=== PATIENT | male | born 1945 | race Caucasian/White ===

== ENCOUNTER 2018-07-08 08:12 | Emergency (ER) | payer MEDICARE, OTHER ==
[~2018-07-08] VITALS: Ht 167.6 cm; Wt 77.1 kg
[~2018-07-08 08:12] MED LIST: ASP81TEC PO; HYDR1TAB66 PO; PNT40TEC PO; cholesterol med
--- NOTE | 2018-07-08 08:40 | ED Cardiac General ---
History of Present Illness General Chief Complaint: Chest Pain Stated Complaint: CHEST PAIN;LEFT ARM PAIN Source: patient Exam Limitations: no limitations History of Present Illness Date Seen by Provider: Jul 08, 2018 Time Seen by Provider: 08:37 Initial Comments A 72-year-old white male presents with chest pain moderate in severity lasting for 1-2 minutes that began last night. The patient has had no similar chest pain in the past. The patient has been seen by Dr. Hanna. He has a history of hypertension and elevated cholesterol. There is a family history of heart disease in his sister who has required a stent. The patient's chest pain as described as a pressure-type discomfort on a 1-2 level that occurs intermittently lasting approximately 2 minutes. The patient has had no associated diaphoresis, shortness of breath, fever or chill, intercurrent illness, or nausea or vomiting. Allergies and Home Medications Allergies Coded Allergies: No Known Drug Allergies (Verified , 12/18/08) Home Medications Aspirin 81 Mg Tabec, 81 MG PO DAILY Prescribed by: FELIZ HALL on 10/27/131836 Hydrocodone Bit/Acetaminophen 1 Each Tablet, 1 EACH PO PRN, (Reported) NEEDED FOR PAIN Pantoprazole Sodium 40 Mg Tablet., 40 MG PO DAILY@0700 Prescribed by: FELIZ HALL on 10/27/131836 Patient Home Medication List Home Medication List Reviewed: Yes Review of Systems Review of Systems Constitutional: see HPI; No chills, No diaphoresis EENTM: No Blurred Vision Respiratory: Denies Cough Cardiovascular: Chest Pain Gastrointestinal: Denies Abdomen Distended, Denies Nausea, Denies Vomiting Genitourinary: No Symptoms Reported Musculoskeletal: No back pain Skin: No change in color, No rash Psychiatric/Neurological: No Symptoms Reported Endocrine: No Symptoms Reported Hematologic/Lymphatic: No Symptoms Reported Past Euoitvx-Lezfxt-Zdlnts Hx Past Med/Social Hx: Reviewed Nursing Past Med/Soc Hx Seasonal Allergies Seasonal Allergies: No Past Medical History Reproductive Disorders: No Sexually Transmitted Disease: No Prostate Family Medical History Heart Disease Physical Exam Vital Signs Vital Signs - First Documented 07/08/18 08:34 Temp 98.9 Pulse 66 Resp 18 B/P (MAP) 144/86 (105) Pulse Ox 97 O2 Delivery Room Air Capillary Refill : Height, Weight, BMI Height: 5'10.00" Weight: 217lbs. oz. 98.556007rw; BMI Method:Stated General Appearance: No Apparent Distress, WD/WN HEENT: Normal ENT Inspection Neck: Normal Inspection Respiratory: Lungs Clear Cardiovascular: Regular Rate, Rhythm, No Gallop, No Murmur Gastrointestinal: Normal Bowel Sounds, Non Tender, Soft Extremity: Normal Capillary Refill, Normal Inspection Neurologic/Psychiatric: Alert, Oriented x3, No Motor/Sensory Deficits Skin: Normal Color, Warm/Dry Progress/Results/Core Measures Results/Orders Lab Results Laboratory Tests Test 07/08/18 08:25 Range/Units White Blood Count 7.3 4.3-11.0 10^3/uL Red Blood Count 4.46 4.35-5.85 10^6/uL Hemoglobin 15.0 13.3-17.7 G/DL Hematocrit 42 40-54 % Mean Corpuscular Volume 95 80-99 FL Mean Corpuscular Hemoglobin 34 25-34 PG Mean Corpuscular Hemoglobin Concent 36 32-36 G/DL Red Cell Distribution Width 13.3 10.0-14.5 % Platelet Count 195 130-400 10^3/uL Mean Platelet Volume 10.9 H 7.4-10.4 FL Neutrophils (%) (Auto) 71 42-75 % Lymphocytes (%) (Auto) 17 12-44 % Monocytes (%) (Auto) 9 0-12 % Eosinophils (%) (Auto) 2 0-10 % Basophils (%) (Auto) 1 0-10 % Neutrophils # (Auto) 5.2 1.8-7.8 X 10^3 Lymphocytes # (Auto) 1.3 1.0-4.0 X 10^3 Monocytes # (Auto) 0.6 0.0-1.0 X 10^3 Eosinophils # (Auto) 0.2 0.0-0.3 10^3/uL Basophils # (Auto) 0.1 0.0-0.1 10^3/uL Prothrombin Time 12.9 12.2-14.7 SEC INR Comment 1.0 0.8-1.4 Activated Partial Thromboplast Time 26 24-35 SEC Sodium Level 139 135-145 MMOL/L Potassium Level 4.0 3.6-5.0 MMOL/L Chloride Level 109 H 98-107 MMOL/L Carbon Dioxide Level 20 L 21-32 MMOL/L Anion Gap 10 5-14 MMOL/L Blood Urea Nitrogen 17 7-18 MG/DL Creatinine 1.16 0.60-1.30 MG/DL Estimat Glomerular Filtration Rate > 60 BUN/Creatinine Ratio 15 Glucose Level 120 H 70-105 MG/DL Calcium Level 9.5 8.5-10.1 MG/DL Corrected Calcium 9.4 8.5-10.1 MG/DL Magnesium Level 2.1 1.8-2.4 MG/DL Total Bilirubin 0.6 0.1-1.0 MG/DL Aspartate Amino Transf (AST/SGOT) 19 5-34 U/L Alanine Aminotransferase (ALT/SGPT) 17 0-55 U/L Alkaline Phosphatase 84 40-136 U/L Myoglobin 108.0 H 10.0-92.0 NG/ML Troponin I < 0.30 <0.30 NG/ML Total Protein 7.0 6.4-8.2 GM/DL Albumin 4.1 3.2-4.5 GM/DL My Orders Orders - NEREIDA, HUMBERTO Connor MD Cbc With Automated Diff (07/08/18 08:35) Magnesium (07/08/18 08:35) Chest 1 View, Ap/Pa Only (07/08/18 08:35) Ekg Tracing (07/08/18 08:35) Cardiac Profile 1 (07/08/18 08:35) Comprehensive Metabolic Panel (07/08/18 08:35) Myoglobin Serum (07/08/18 08:35) Protime With Inr (07/08/18 08:35) Partial Thromboplastin Time (07/08/18 08:35) O2 (07/08/18 08:35) Monitor-Rhythm Ecg Trace Only (07/08/18 08:35) Lipid Panel (07/09/18 06:00) Aspirin Chewable Tablet (Baby Aspirin Ch (07/08/18 08:45) Nitroglycerin 0.4 Mg Btl 25's (Nitrostat (07/08/18 08:45) Saline Lock/Iv-Start (07/08/18 08:35) Medications Given in ED Current Medications Medications Dose Ordered Sig/Bradley Route Start Time Stop Time Status Last Admin Dose Admin Aspirin 324 mg ONCE ONCE PO 07/08/18 08:45 07/08/18 08:46 DC 07/08/18 08:52 324 MG Vital Signs/I&O 07/08/18 07/08/18 08:34 08:34 Temp 98.9 Pulse 66 Resp 18 B/P (MAP) 144/86 (105) Pulse Ox 97 O2 Delivery Room Air Progress Progress Note : Time: 10:21 Progress Note Patient was observed in the emergency department for approximately 2 hours. He had no further chest pain during his evaluation. Patient's EKG demonstrated a sinus rhythm with PACs but no acute current of injury was noted. Patient's laboratory evaluation demonstrated a normal troponin. The rest of the patient's lab was similarly benign. The patient requested to be discharged. 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 I sent the patient home with instructions to return if any further episodes of chest pain and to use a nitroglycerin which I have prescribed for him should his chest pain recur. Departure Impression Primary Impression: Chest pain Qualified Codes: R07.9 - Chest pain, unspecified Disposition: 01 HOME, SELF-CARE Condition: Improved Departure-Patient Inst. Decision time for Depature: 10:23 Referrals: ADÁN MCCAIN MD (PCP) Primary Care Physician DRU HANNA MD Patient Instructions: Chest Pain (DC) Add. Discharge Instructions: Nitroglycerin should the chest pain recur. Return if you have further episode of chest pain. Close follow-up with Dr. Hanna on Wednesday. Return if any problems or questions. All discharge instructions reviewed with patient and/or family. Voiced understanding. HUMBERTO PADRON MD Jul 08, 2018 08:40
[2018-07-08 08:44] LABS: BASOPHILS # (AUTO) 0.1 10^3/uL (0.0-0.1); BASOPHILS % (AUTO) 1 % (0-10); EOSINOPHILS # (AUTO) 0.2 10^3/uL (0.0-0.3); EOSINOPHILS % (AUTO) 2 % (0-10); HEMATOCRIT 42 % (40-54); LYMPHOCYTES # (AUTO) 1.3 X 10^3 (1.0-4.0); LYMPHOCYTES % (AUTO) 17 % (12-44); MEAN CORPUSCULAR HEMOGLOBIN 34 PG (25-34); MEAN CORPUSCULAR HGB CONC 36 G/DL (32-36); MEAN CORPUSCULAR VOLUME 95 FL (80-99); MEAN PLATELET VOLUME 10.9 FL (7.4-10.4); MONOCYTES # (AUTO) 0.6 X 10^3 (0.0-1.0); MONOCYTES % (AUTO) 9 % (0-12); NEUTROPHILS # (AUTO) 5.2 X 10^3 (1.8-7.8); NEUTROPHILS % (AUTO) 71 % (42-75); PLATELET COUNT 195 10^3/uL (130-400); RED BLOOD COUNT 4.46 10^6/uL (4.35-5.85); RED CELL DISTRIBUTION WIDTH 13.3 % (10.0-14.5); WHITE BLOOD COUNT 7.3 10^3/uL (4.3-11.0)
[2018-07-08] MEDS ORDERED: ASPIRIN 81 MG CHEW (CHILDREN'S ASA) PO ONE (08:45)
[2018-07-08] MEDS ORDERED: NITROGLYCERIN 0.4 MG SL TABS BTL 25'S SL PRN (08:45)
--- OUTSIDE RECORDS SUMMARY | 2018-07-08 08:46 | XMS REPORT | Clinical Summary ---
Author Author [facility] Organization [facility] Address Unknown Phone Unavailable Care Team Providers Care Production Line Technician Name Role Phone Sea Conroy MD PCP Babar Wade MD Unavailable Amber Cox RN Unavailable Unavailable Simon Tian MD Unavailable Source Comments Some departments are not documenting in the electronic medical record. If you do not see the information that you expected, contact Release of Information in the Health Information Management department at [phone] for further assistance in locating additional records.[facility] Allergies No Known Allergies Current Medications Prescription Sig. Disp. Refills Start End Date Status Date losartan (COZAAR) 25 mg Take 25 mg by mouth Active tablet daily. atorvastatin (LIPITOR) 40 Take 80 mg by mouth Active mg tablet daily. sildenafil(+) (VIAGRA) 50 Take 100 mg by mouth as Active mg tablet Needed for Erectile dysfunction. fluticasone (FLONASE) 50 Apply to each nostril as Active mcg/actuation nasal spray directed daily. Shake bottle gently before using. 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 Social History Tobacco Use Types Packs/Day Years Used Date Current Every Day Smoker Cigarettes 1 50 Alcohol Use Drinks/Week oz/Week Comments No 0 Standard 0.0 drinks or equivalent Sex Assigned at Date Recorded Not on file Last Filed Vital Signs Vital Sign Reading Time Taken Blood Pressure 154/92 05/06/2016 1:20 PM CDT Pulse 88 05/06/2016 1:20 PM CDT Temperature - - Respiratory Rate 16 05/06/2016 1:20 PM CDT Oxygen Saturation 97% 05/06/2016 1:20 PM CDT Inhaled Oxygen - - Concentration Weight 93 kg (205 lb) 05/06/2016 1:20 PM CDT Height 177.8 cm (5' 10") 05/06/2016 1:20 PM CDT Body Mass Index 29.41 05/06/2016 1:20 PM CDT Plan of Treatment Health Maintenance Due Date Last Done Comments HEPATITIS C SCREENING 1945 PHYSICAL (COMPREHENSIVE) 1954 EXAM PERTUSSIS VACCINE 1958 TETANUS VACCINE 1964 COLORECTAL CANCER 1997 SCREENING SHINGLES RECOMBINANT 1997 VACCINE (1 of 2) ABDOMINAL AORTIC ANEURYSM 2012 SCREENING PNEUMONIA (PCV13/PPSV23) 2012 VACCINES (1 of 2 - PCV13) INFLUENZA VACCINE 07/18/2018 Results Not on filefrom Last 3 Months
[2018-07-08 08:47] LABS: PROTHROMBIN TIME PATIENT 12.9 SEC (12.2-14.7)
[2018-07-08 08:54] LABS: ALANINE AMINOTRANSFERASE 17 U/L (0-55); ALBUMIN 4.1 GM/DL (3.2-4.5); ALKALINE PHOSPHATASE 84 U/L (40-136); BILIRUBIN,TOTAL 0.6 MG/DL (0.1-1.0); BUN/CREATININE RATIO 15; CALCIUM 9.5 MG/DL (8.5-10.1); CARBON DIOXIDE 20 MMOL/L (21-32); CHLORIDE 109 MMOL/L (98-107); CREATININE SERUM 1.16 MG/DL (0.60-1.30); GFR ESTIMATED > 60; GLUCOSE 120 MG/DL (70-105); MAGNESIUM 2.1 MG/DL (1.8-2.4); SODIUM 139 MMOL/L (135-145)
--- NOTE | 2018-07-08 09:30 | Diagnostic Imaging Report ---
INDICATION: Left anterior chest pain since last night. TECHNIQUE: Single view chest 9:05 AM. CORRELATION STUDY: 10/27/2013 FINDINGS: The heart size, mediastinal configuration and pulmonary vascularity are within normal limits. Minimal areas of likely atelectasis left lung base. No significant infiltrate. IMPRESSION: 1. Minimal left basilar atelectasis. Dictated by: Dictated on workstation # [id number]
[2018-07-08 10:56] VITALS: BP 126/71
== END 2018-07-08 10:56 | disposition home or self-care (01) ==
LOC: EDUNIT# 08:12 → ER 08:14
DX: R07.89 Other chest pain (principal); I10 Essential (primary) hypertension; E78.00 Pure hypercholesterolemia, unspecified; Z82.49 Family history of ischemic heart disease and other diseases of the circulatory system; Z79.82 Long term (current) use of aspirin
CPT/HCPCS: 36415; 71045; 80053; 83735; 83874; 84484; 85025; 85610; 85730; 93005; 93041

== ENCOUNTER 2018-07-29 12:48 | Outpatient (CLI) | payer MEDICARE, OTHER ==
[~2018-07-29] VITALS: Ht 177.8 cm; Wt 90.7 kg
[~2018-07-29 12:48] MED LIST changes: +ATOR80TA76 PO; +HYDR-3820 PO; +LOSA25TA6 PO; +OMEP20CA12 PO
== END 2018-07-29 13:39 | disposition home or self-care (01) ==
LOC: PREOP 12:48
PROVIDERS: ATTEND Specialist
DX: Z01.818 Encounter for other preprocedural examination (principal)

== ENCOUNTER 2018-08-01 08:44 | Day surgery (SDC) | payer MEDICARE, OTHER ==
[~2018-08-01] VITALS: Ht 177.8 cm; Wt 90.7 kg
[2018-08-01] MEDS: TETRACAINE 0.5% OPHTH SOLN 4 ML BTL (SINGLE DOSE ONLY) OU PRN ×4 (08:59→09:11)
[2018-08-01] MEDS ORDERED: POVIDONE (BETADINE) OPHTH SOLN 5% 30 ML OP ONE (09:00)
[2018-08-01] MEDS ORDERED: LIDOCAINE PF 1% 2 ML AMP IR PRN (09:00)
[2018-08-01] MEDS ORDERED: EPINEPHrine INJECTION 1 MG/ML AMP INJ ONE (09:00)
[2018-08-01] MEDS ORDERED: BSS 15 ML IR PRN (09:00)
[2018-08-01] MEDS ORDERED: TIMOLOL MALEATE 0.5% 5 ML (TIMOPTIC) BTL OU PRN (09:00)
[2018-08-01] MEDS ORDERED: MOXIFLOXACIN OPHTH SOLN 5 MG/ML 0.3 ML SYRINGE OP ONE (09:00)
[2018-08-01 09:01] VITALS: BP 136/92
[2018-08-01] MEDS: PHENYLEPHRINE 10% OPHTH (NEO-SYN) 5 ML BTL OU SCH ×3 (09:04→09:12)
[2018-08-01] MEDS: CYCLOPENTOLATE 1% (CYCLOGYL) 2 ML DROPS OP SCH ×3 (09:04→09:12)
[2018-08-01] MEDS ORDERED: MIDAZOLAM 2 MG/2 ML (VERSED) VIAL ONE (09:05)
--- NOTE | 2018-08-01 09:19 | Ophthalmologist Pre-Op Note ---
Pre-Operative Progress Note H&P Reviewed The H&P was reviewed, patient examined and no changes noted. Date H&P Reviewed: Aug 01, 2018 Time H&P Reviewed: 09:12 Pre-Op Dx Cataract, Left Eye KIMBERLEY HAND MD Aug 01, 2018 09:19
--- NOTE | 2018-08-01 09:41 | Ophthalmology Operative Report ---
Cataract removal/placement IOL PREOPERATIVE DIAGNOSIS: Cataract Left Eye POSTOPERATIVE DIAGNOSIS: Cataract Left Eye PROCEDURE: Cataract removal and placement of posterior chamber implant, left eye SURGEON: Richardson Hand ANESTHESIA: Topical with sedation COMPLICATIONS: None ESTIMATED BLOOD LOSS: Minimal DESCRIPTION OF PROCEDURE: After proper informed consent was obtained, the patient, a 73 male, was taken to the Operating Room and the left eye was anesthetized with tetracaine. The left eye was then prepped and draped in the usual manner. A wire lid speculum was placed. A paracentesis was made at the left hand position. Preservative free lidocaine was injected into the anterior chamber followed by viscoelastic. A clear corneal incision was made in the temporal position. A capsulorrhexis was preformed and the central nuclear and cortical material were removed. The posterior capsule was polished and an Kyle 18.5 [id number] IOL was placed into the capsular bag. The residual viscoelastic was aspirated and balanced saline solution was injected into the anterior chamber. Moxifloxacin was injected into the anterior chamber. The wound was checked and found to be water tight. The patient tolerated the procedure well without complications. RICHARDSON HAND MD Aug 01, 2018 09:41
[2018-08-01] MEDS ORDERED: acetaZOLAMIDE ER 500 MG CAP (DIAMOX SEQUELS) PO ONE (09:45)
[2018-08-01 09:50] VITALS: BP 139/1
--- NOTE | 2018-08-01 13:22 | Anesthesia-General Post-Op ---
MAC Patient Condition Mental Status/LOC: Same as Preop Cardiovascular: Satisfactory Nausea/Vomiting: Absent Respiratory: Satisfactory Pain: Controlled Complications: Absent Post Op Complications Complications None Follow Up Care/Instructions Patient Instructions None needed. Anesthesiology Discharge Order Discharge Order Patient is doing well, no complaints, stable vital signs, no apparent adverse anesthesia problems. No complications reported per nursing. PATRICK BOO CRNA Aug 01, 2018 13:22
== END 2018-08-01 09:50 | disposition home or self-care (01) ==
LOC: SDC 08:44
PROVIDERS: ATTEND Specialist
DX: H25.12 Age-related nuclear cataract, left eye (principal); I10 Essential (primary) hypertension; K21.9 Gastro-esophageal reflux disease without esophagitis; F17.200 Nicotine dependence, unspecified, uncomplicated; Z79.899 Other long term (current) drug therapy

== ENCOUNTER 2018-08-22 05:55 | Outpatient (CLI) | payer MEDICARE, OTHER | END 2018-08-22 13:21 | disposition home or self-care (01) | LOC: PREOP 05:55 | PROVIDERS: ATTEND Specialist | DX: Z01.818 Encounter for other preprocedural examination (principal) ==

== ENCOUNTER 2018-08-26 06:18 | Day surgery (SDC) | payer MEDICARE, OTHER ==
[~2018-08-26] VITALS: Ht 177.8 cm; Wt 90.7 kg
[2018-08-26 06:30] VITALS: BP 130/80
[2018-08-26] MEDS ORDERED: LIDOCAINE PF 1% 2 ML AMP IR PRN (06:30)
[2018-08-26] MEDS ORDERED: POVIDONE (BETADINE) OPHTH SOLN 5% 30 ML OP ONE (06:30)
[2018-08-26] MEDS ORDERED: MOXIFLOXACIN OPHTH SOLN 5 MG/ML 0.3 ML SYRINGE OP ONE (06:30)
[2018-08-26] MEDS ORDERED: TIMOLOL MALEATE 0.5% 5 ML (TIMOPTIC) BTL OU PRN (06:30)
[2018-08-26] MEDS: TETRACAINE 0.5% OPHTH SOLN 4 ML BTL (SINGLE DOSE ONLY) OU PRN ×4 (06:37→06:56)
[2018-08-26] MEDS: PHENYLEPHRINE 10% OPHTH (NEO-SYN) 5 ML BTL OU SCH ×3 (06:45→06:56)
[2018-08-26] MEDS: CYCLOPENTOLATE 1% (CYCLOGYL) 2 ML DROPS OP SCH ×3 (06:45→06:56)
[2018-08-26] MEDS ORDERED: MIDAZOLAM 2 MG/2 ML (VERSED) VIAL ONE (06:51)
--- NOTE | 2018-08-26 07:24 | Ophthalmologist Pre-Op Note ---
Pre-Operative Progress Note H&P Reviewed The H&P was reviewed, patient examined and no changes noted. Date H&P Reviewed: Aug 26, 2018 Time H&P Reviewed: 07:23 Pre-Op Dx Cataract, Right Eye IKMBERLEY HAND MD Aug 26, 2018 07:23
--- NOTE | 2018-08-26 07:49 | Ophthalmology Operative Report ---
Cataract removal/placement IOL PREOPERATIVE DIAGNOSIS: Cataract Right Eye POSTOPERATIVE DIAGNOSIS: Cataract Right Eye PROCEDURE: Cataract removal and placement of posterior chamber implant, right eye SURGEON: Richardson Hand ANESTHESIA: Topical with sedation COMPLICATIONS: None ESTIMATED BLOOD LOSS: Minimal DESCRIPTION OF PROCEDURE: After proper informed consent was obtained, the patient, a 73 male, was taken to the Operating Room and the right eye was anesthetized with tetracaine. The right eye was then prepped and draped in the usual manner. A wire lid speculum was placed. A paracentesis was made at the left hand position. Preservative free lidocaine was injected into the anterior chamber followed by viscoelastic. A clear corneal incision was made in the temporal position. A capsulorrhexis was preformed and the central nuclear and cortical material were removed. The posterior capsule was polished and Kyle AU00T0 19.0 IOL was placed into the capsular bag. The residual viscoelastic was aspirated and balanced saline solution was injected into the anterior chamber. Moxifloxacin was injected into the anterior chamber. The wound was checked and found to be water tight. The patient tolerated the procedure well without complications. RICHARDSON HAND MD Aug 26, 2018 07:49
[2018-08-26 08:00] VITALS: BP 130/80
[2018-08-26] MEDS ORDERED: acetaZOLAMIDE ER 500 MG CAP (DIAMOX SEQUELS) PO ONE (08:00)
--- NOTE | 2018-08-26 09:27 | Anesthesia-General Post-Op ---
MAC Patient Condition Mental Status/LOC: Same as Preop Cardiovascular: Satisfactory Nausea/Vomiting: Absent Respiratory: Satisfactory Pain: Controlled Complications: Absent Post Op Complications Complications None Follow Up Care/Instructions Patient Instructions None needed. Anesthesiology Discharge Order Discharge Order Patient is doing well, no complaints, stable vital signs, no apparent adverse anesthesia problems. No complications reported per nursing. DALE HOLCOMB CRNA Aug 26, 2018 09:27
== END 2018-08-26 08:00 | disposition home or self-care (01) ==
LOC: SDC 06:18
PROVIDERS: ATTEND Specialist
DX: H25.11 Age-related nuclear cataract, right eye (principal); F17.210 Nicotine dependence, cigarettes, uncomplicated; Z85.46 Personal history of malignant neoplasm of prostate; Z85.858 Personal history of malignant neoplasm of other endocrine glands; I10 Essential (primary) hypertension; E78.5 Hyperlipidemia, unspecified; K21.9 Gastro-esophageal reflux disease without esophagitis; Z79.899 Other long term (current) drug therapy

== ENCOUNTER 2018-11-09 05:36 | Outpatient (CLI) | payer MEDICARE, OTHER ==
[~2018-11-09] VITALS: Ht 177.8 cm; Wt 90.7 kg
[~2018-11-09 05:36] MED LIST changes: +LOSA25TA41 PO; -LOSA25TA6 PO
== END 2018-11-09 14:18 | disposition home or self-care (01) ==
LOC: PREOP 05:36
PROVIDERS: ATTEND Surgery
DX: Z01.818 Encounter for other preprocedural examination (principal)

== ENCOUNTER 2018-11-16 09:20 | Day surgery (SDC) | payer OTHER ==
[~2018-11-16] VITALS: Ht 177.8 cm; Wt 90.7 kg
[2018-11-16] MEDS ORDERED: NS IV 500 ML 500 ML ONE ×2 (09:44→11:04)
[2018-11-16] MEDS ORDERED: HURRICAINE EXT TUBE (BENZOCAINE) XX PRN (09:45)
[2018-11-16] MEDS ORDERED: LIDOCAINE JELLY 2% 6 ML SYRINGE MM PRN (09:45)
[2018-11-16] MEDS ORDERED: MIDAZOLAM 2 MG/2 ML (VERSED) VIAL IVP ONE (09:45)
[2018-11-16] MEDS ORDERED: fentaNYL INJECTION 100 MCG/2 ML AMP IVP ONE (09:45)
--- OUTSIDE RECORDS SUMMARY | 2018-11-16 09:46 | XMS REPORT | Clinical Summary ---
Author Author [facility] Organization [facility] Address Unknown Phone Unavailable Care Team Providers Care Box Stacker Name Role Phone Sea Conroy MD PCP Babar Wade MD Unavailable Amber Cox RN Unavailable Unavailable Simon Tian MD Unavailable Source Comments Some departments are not documenting in the electronic medical record. If you do not see the information that you expected, contact Release of Information in the Health Information Management department at [phone] for further assistance in locating additional records.[facility] Allergies No Known Allergies Medications End Date Status Medication Sig Dispensed Refills Start Date Active losartan (COZAAR) 25 mg Take 25 mg by 0 tablet mouth daily. Active atorvastatin (LIPITOR) 40 Take 80 mg by 0 mg tablet mouth daily. Active sildenafil(+) (VIAGRA) 50 Take 100 mg 0 mg tablet by mouth as Needed for Erectile dysfunction. Active fluticasone (FLONASE) 50 Apply to 0 mcg/actuation nasal spray each nostril as directed daily. Shake bottle gently before using. 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 Last Filed Vital Signs Time Taken Vital Sign Reading 05/06/2016 1:20 PM CDT Blood Pressure 154/92 05/06/2016 1:20 PM CDT Pulse 88 - Temperature - 05/06/2016 1:20 PM CDT Respiratory Rate 16 05/06/2016 1:20 PM CDT Oxygen Saturation 97% - Inhaled Oxygen - Concentration 05/06/2016 1:20 PM CDT Weight 93 kg (205 lb) 05/06/2016 1:20 PM CDT Height 177.8 cm (5' 10") 05/06/2016 1:20 PM CDT Body Mass Index 29.41 Plan of Treatment Health Maintenance Due Date Last Done Comments HEPATITIS C SCREENING 1945 PHYSICAL (COMPREHENSIVE) 1954 EXAM DTAP/TDAP VACCINES (1 - 1965 Tdap) COLORECTAL CANCER 1997 SCREENING SHINGLES RECOMBINANT 1997 VACCINE (1 of 2) ABDOMINAL AORTIC ANEURYSM 2012 SCREENING PNEUMONIA (PCV13/PPSV23) 2012 VACCINES (1 of 2 - PCV13) INFLUENZA VACCINE 05/18/2018 Results Not on filefrom Last 3 Months Insurance Payer Benefit Subscriber ID Type Phone Address Plan / Group MEDICARE MEDICARE xxxxxxxxxx Medicare PART A AND B GENERIC COMMERCIAL GENERIC xxxxxxxxxx Indemnity COMMERCIAL [employer] xxxxxxxxxx Medicare CHOICE (Home) [place] [address] Advance Directives Patient has advance care planning documents on file. For more information, please contact: [facility] [address] [place] [address]
[2018-11-16 09:50] VITALS: BP 135/88
--- NOTE | 2018-11-16 10:10 | Conscious Sedation/ASA ---
Conscious Sedation Pre-Proced Time 10:00 ASA Score 2 For ASA 3 and 4: Consider anesthesia and medical clearance. Also, for patients with a history of failed moderate sedation consider anesthesia. Airway Lungs Heart ASA score ASA 1: a normal healthy patient ASA 2: a patient with a mild systemic disease (mid diabetes, controlled hypertension, obesity ASA 3: a patient with a severe systemic disease that limits activity (angina , COPD, prior Myocardial infarction) ASA 4: a patient with an incapacitating disease that is a constant threat to life (CHF, renal failure) ASA 5: a moribund patient not expected to survive 24 hrs. (ruptured aneurysm) ASA 6: a declared brain- patient whose organs are being harvested. For emergent operations, add the letter E after the classification Mallampati Classification Grade 2 Sedation Plan Analgesia, Amnesia, Plan communicated to team members, Discussed options with patient/fam, Discussed risks with patient/fam The patient is an appropriate candidate to undergo the planned procedure, sedation, and anesthesia. The patient immediately re-assessed prior to indication. NYDIA ESQUIVEL MD Nov 16, 2018 10:10
--- NOTE | 2018-11-16 10:11 | Progress Note-Pre Operative ---
Pre-Operative Progress Note H&P Reviewed The H&P was reviewed, patient examined and no changes noted. Date Seen by Provider: Nov 16, 2018 Time Seen by Provider: 10:00 Date H&P Reviewed: Nov 16, 2018 Time H&P Reviewed: 10:00 Pre-Operative Diagnosis: GERD,hx larygeal ca, rectal bleed. NYDIA ESQUIVEL MD Nov 16, 2018 10:11
[2018-11-16] MEDS ORDERED: PANT40TA2 PO (10:12)
--- NOTE | 2018-11-16 10:13 | Discharge Inst-Surgical ---
D/C Lap Instructions-KIDO New, Converted, or Re-Newed RX: RX on Chart Follow Up Appt Activity as tolerated High Fiber Diet 25g or more per day Avoid Alcohol, Caffeine, Spicy [place] and Acid foods. Drink 64 fluid oz or more of fluids per day. Symptoms to Report: Fever over 101 degree F, Nausea/Vomiting If any problems/questions: Contact your physician or go to Emergency Room NYDIA ESQUIVEL MD Nov 16, 2018 10:13
[2018-11-16] MEDS ORDERED: ACETAMINOPHEN 325 MG TABLET PO PRN (10:15)
[2018-11-16] MEDS ORDERED: HYDROcodone/APAP 5 MG/325 MG (LORTAB) TAB PO PRN (10:15)
[2018-11-16] MEDS ORDERED: morphine INJ 10 MG/ML 1ML (SYR OR VIAL) IV PRN (10:15)
[2018-11-16] MEDS ORDERED: ONDANSETRON 4 MG/2 ML (SDV) Z0FRAN IV PRN (10:15)
[2018-11-16] MEDS ORDERED: MIDAZOLAM 2 MG/2 ML (VERSED) VIAL ONE ×5 (10:23→10:58)
[2018-11-16] MEDS ORDERED: HURRICAINE EXT TUBE (BENZOCAINE) ONE (10:24)
[2018-11-16] MEDS ORDERED: LIDOCAINE JELLY 2% 6 ML SYRINGE ONE (10:24)
[2018-11-16] MEDS ORDERED: fentaNYL INJECTION 100 MCG/2 ML AMP ONE ×2 (10:24→11:03)
[2018-11-16] MEDS: NS IV 500 ML 500 ML IV PRN ×2 (10:35→11:00)
--- NOTE | 2018-11-16 11:44 | Progress Note-Post Operative ---
Post-Operative Progess Note Surgeon (s)/Incident Handler (s) Surgeon NYDIA ESQUIVEL MD Incident Handler: none Pre-Operative Diagnosis GERD,hx larygeal ca, rectal bleed. Post-Operative Diagnosis reflux eosphagitis(stage 2), mild distal esoph stricture, small HH(1.5cm), moderate gastritis. chronic stage 2 ext and int hemorrhoids, mild proctitis, small HP polyp asc colon(2mm) Procedure & Operative Findings Date of Procedure 11/16/18 Procedure Performed/Findings EGD with bx and balloon dilatation. Colonoscopy with bx. Anesthesia Type CS Estimated Blood Loss Estimated blood loss (mL): minimal Specimens/Packing Specimens Removed GE jxn, antrum, rectum, asc colon polyp NYDIA ESQUIVEL MD Nov 16, 2018 11:44
[2018-11-16 11:55] VITALS: BP 145/75
[2018-11-16 12:20] VITALS: BP 146/76
[2018-11-16 12:45] VITALS: BP 146/76
--- NOTE | 2018-11-16 16:48 | OPERATIVE REPORT ---
DATE OF SERVICE: 11/16/2018 ATTENDING PRIMARY CARE PHYSICIAN: Lexa Eid MD at the [facility] in [place], [place]. PREOPERATIVE DIAGNOSES: 1. Gastroesophageal reflux disease. 2. Rectal bleed. 3. Screening colonoscopy. POSTOPERATIVE DIAGNOSES: 1. Reflux esophagitis stage II. 2. Mild distal esophageal stricture and Schatzki's ring. 3. Small hiatal hernia approximately 1.5 cm in size. 4. Mild gastritis. 5. Chronic stage II external and internal hemorrhoids, mild proctitis, small hyperplastic polyp of the ascending colon, approximately 2 mm in size. PROCEDURES: 1. EGD with biopsy and balloon dilatation. 2. Colonoscopy with biopsy. SURGEON: Nydia Esquivel MD ANESTHESIA: Conscious sedation. ESTIMATED BLOOD LOSS: Minimal. FINDINGS: 1. EGD, reflux esophagitis stage II with a mild distal esophageal stricture and Schatzki's ring, small hiatal hernia approximately 1.5 cm in size, moderate gastritis at the antrum and pylorus. 2. Colonoscopy, chronic stage II external and internal hemorrhoids, mild proctitis of the distal rectum, small hyperplastic polyp of the ascending colon, 2 mm in size. DISPOSITION: The patient tolerated the procedure well. INDICATIONS: The patient is a 73-year-old male with history of gastroesophageal reflux disease, which he has had for many years; however, has worsened over time. He also does report some occasional episodes of regurgitation. He is also in need of a screening colonoscopy. He has not had a colonoscopy up to this point in his life. He does report one month ago, he did have an episode of rectal bleeding; however, he has had issues with hemorrhoids and has had mild hemorrhoidal bleed in the past as well. He has had a history of laryngeal cancer requiring radiation as well in the past. DESCRIPTION OF PROCEDURE: The patient was brought to the endoscopy suite, laid in the left lateral decubitus position with head slightly elevated. After adequate IV pain and sedating medications and conscious sedation anesthesia, the mouthpiece was applied. The endoscope was placed in the mouth, visualizing the pharynx and hypopharyngeal region. Vocal cords, epiglottis and vallecula were identified and appeared to be normal. The endoscope was gently intubated in the esophageal opening and esophagus was insufflated. The endoscope was then advanced to the first, second and third portion of the esophagus. At the level of GE junction, a reflux esophagitis stage II identified. There was also a mild distal esophageal stricture and Schatzki's ring was identified. A biopsy was taken of the GE junction with forceps with visualization of good hemostasis. The endoscope was then advanced to the stomach and the endoscope was retroflexed, visualizing a small hiatal hernia, approximately 1.5 cm in size as well as the Schatzki's ring again. There was a moderate gastritis towards the stomach, antrum and the pylorus. There were no formal ulcerations, polyps or any neoplasms. A biopsy was taken of the antrum to rule out H. pylori with forceps with visualization of good hemostasis. The endoscope was then advanced to the duodenum. First and second portion of the duodenum, which appeared normal and no distal obstructions. We then proceeded with dilatation of the esophageal stricture. The balloon was placed in the stomach and pulled back to the area of the stricture. The balloon was first insufflated to 2 atmospheres of pressure or 18 mm of diameter with no resistance. We then proceeded to 4 atmospheres of pressure or 19 mm with no resistance. We then proceeded to 6 atmospheres of pressure or 20 mm in diameter with mild to moderate resistance and left in place for approximately 60 seconds. The balloon was then desufflated and removed with visualization of good hemostasis as well as no mucosal tears. The endoscope was slowly withdrawn with taking a second look and suctioning of residual air with no additional findings. The patient tolerated this portion of the procedure well. For his reflux esophagitis, distal esophageal stricture and gastritis, we will recommend the necessary lifestyle and diet accommodation including small and more frequent meals, avoidance of eating at night as well as head elevation while lying supine. He also needs to avoid smoking, caffeinated beverages as well as spicy, greasy and acidic foods. We will also start him on Protonix 40 mg daily. Under the same anesthesia, we then proceeded with the colonoscopy portion of the procedure. A mild to moderate chronic external and internal hemorrhoids were identified, which were not actively edematous nor inflamed with no bleeding. Prostate gland appeared to be slightly enlarged; however, there were no hard nodules identified. Normal sphincter tone was felt and there were no palpable masses otherwise. The endoscope was then intubated into the anus and rectum was gently insufflated. At the distal rectum, mild proctitis was identified. A biopsy was taken using forceps with visualization of good hemostasis. The endoscope was then advanced to the sigmoid colon where no diverticulosis was identified. We then proceeded to the remainder of the descending, transverse and ascending colon to the cecum. At the ascending colon, a very small hyperplastic polyp, approximately 2 mm in size was identified. This was biopsied and destroyed using forceps and electrocautery with visualization of good hemostasis. Endoscope was then slowly withdrawn while taking a second look and suctioning of residual air with no additional findings. The patient tolerated the procedure well. We will await the biopsy results. We will recommend a high fiber diet with at least 30 grams of fiber per day as well as significant amounts of water daily to promote soft stools on a daily basis. There was a mild proctitis identified; however, this may be due to the colonic preparation versus isolated incidents versus nonspecific mild inflammatory bowel disease. We will await the biopsy results; however, again we will recommend continued conservative medical management. Job ID: [id number] DocumentID: [id number] Dictated Date: 11/16/2018 11:37:40 Stacking Machine Operator Date: 11/16/2018 16:47:16 Dictated By: NYDIA ESQUIVEL MD
== END 2018-11-16 12:45 | disposition home or self-care (01) ==
LOC: ENDO 09:20
PROVIDERS: ATTEND Surgery
DX: Z12.11 Encounter for screening for malignant neoplasm of colon (principal); D12.2 Benign neoplasm of ascending colon; K21.0 Gastro-esophageal reflux disease with esophagitis; K22.2 Esophageal obstruction; K44.9 Diaphragmatic hernia without obstruction or gangrene; K29.70 Gastritis, unspecified, without bleeding; K64.1 Second degree hemorrhoids; K62.89 Other specified diseases of anus and rectum; Z85.46 Personal history of malignant neoplasm of prostate; Z85.820 Personal history of malignant melanoma of skin; I10 Essential (primary) hypertension; Z79.899 Other long term (current) drug therapy

== ENCOUNTER → 2019-01-11 | Outpatient (CLI) | payer MEDICARE, OTHER ==
[~2019-01-11] VITALS: Ht 177.8 cm; Wt 91.2 kg
[~2019-01-11] MED LIST changes: +CATHETER FLUSH 10 ML SYR IV PRN; +PANT40TA2 PO
--- NOTE | 2019-01-11 13:32 | STRESS TEST ---
DATE OF SERVICE: 01/11/2019 EXERCISE MYOVIEW STRESS TEST REFERRING PHYSICIAN: Dr. Hanna. Baseline heart rate is 61, baseline blood pressure 153/76. Baseline EKG, sinus rhythm with right bundle branch block. In summary, the patient was injected with 10.34 mCi of technetium-99 Myoview and the resting images were obtained. Then, the patient started exercising with a baseline heart rate, blood pressure and EKG mentioned above. At peak stress level, the patient was injected with 30.6 mCi of technetium-99 Myoview at peak heart rate was 130 beat per minute, which is 87% of maximum expected heart rate, blood pressure was 248/64. During recovery, heart rate and blood pressure returned to baseline. EKG returned to baseline. The resting and stress images were reviewed and compared in the short axis, horizontal long axis, and vertical long axis views. Review of the images showed diaphragmatic attenuation with typical male pattern, mild decreased uptake at the inferior wall with no significant ischemia. SSS is 2, SDS 1, TID value 0.97. On the gated images, the left ventricle appeared to be normal size with normal contractility. Calculated ejection fraction 55%. CONCLUSION: 1. Fair exercise tolerance, a total of 8 minutes on standard Andres protocol, total of 9.7 METS achieving 87% of maximum expected heart rate. 2. Severe hypertensive response to exercise with peak blood pressure 248/64, returned to baseline during recovery. 3. Baseline right bundle branch block with minimal nondiagnostic EKG changes with exercise returned to baseline during recovery. 4. Diaphragmatic attenuation with typical male pattern with no significant ischemia or infarction on SPECT images. 5. Normal left ventricular size with normal contractility. Calculated ejection fraction 55%. Job ID: [id number] DocumentID: [id number] Dictated Date: 01/11/2019 13:15:51 Heading Pinner Date: 01/11/2019 13:32:04 Dictated By: DRU HANNA MD
== END ==
LOC: CARD 06:54
PROVIDERS: ATTEND Internal Medicine Cardiovascular Disease
DX: I25.10 Atherosclerotic heart disease of native coronary artery without angina pectoris (principal); R07.9 Chest pain, unspecified; I10 Essential (primary) hypertension; E78.2 Mixed hyperlipidemia
CPT/HCPCS: 78452; 93017; 93306

== ENCOUNTER → 2019-06-20 | Outpatient (REF) ==
[~2019-06-20] MED LIST changes: -CATHETER FLUSH 10 ML SYR IV PRN; -OMEP20CA12 PO; +OMEP20CA13 PO
--- NOTE | 2019-06-20 13:46 | Diagnostic Imaging Report ---
INDICATION: Pain status post injury. COMPARISON: None. FINDINGS: 3 views of the left shoulder were obtained. There is no fracture, dislocation, or other acute bony abnormality identified. The soft tissues appear unremarkable. No radiopaque foreign bodies identified. The visualized portions of the left lung are clear. IMPRESSION: No acute fractures or dislocations of the left shoulder. Dictated by: Dictated on workstation # [id number]
== END | disposition home or self-care (01) ==
LOC: OCC 13:24 → MERGE 13:24
PROVIDERS: ATTEND Family Medicine
CPT/HCPCS: 73030

== ENCOUNTER → 2019-07-07 | Outpatient (REF) | payer MEDICARE, OTHER ==
--- NOTE | 2019-07-07 14:20 | Diagnostic Imaging Report ---
MRI LT UPPER EXT JOINT W/O TECHNIQUE: Multiplanar, multisequence MR imaging of the left shoulder was performed without contrast. COMPARISON: None available. INDICATION: Left shoulder pain. FINDINGS: Rotator cuff: Full-thickness tear of the anterior one half of the supraspinatus has the torn fibers retracted approximately 1-2 cm. The posterior one half of the supraspinatus remains intact. Infraspinatus and teres minor are normal. Subscapularis has mild tendinopathy without superimposed tear. No rotator cuff muscle atrophy or edema. Glenoid labrum: By non-arthrogram imaging, the glenoid labrum appears intact. No para-labral cyst. Long head of biceps: Long head of biceps is normally positioned within the bicipital groove. The intracapsular segment is intact. Bones and cartilage: Humeral head is normal in morphology without fracture or focal osseous lesion. Focal low-grade partial-thickness chondromalacia in the superior and posterior aspect of the glenoid. The remainder of the articular cartilage is well preserved throughout the glenohumeral joint. The acromioclavicular joint is normal in alignment without significant degenerative change. Soft tissues: No glenohumeral joint effusion. No MRI findings to suggest adhesive capsulitis. Fluid in the subacromial subdeltoid space is likely due to communication with the glenohumeral joint via the rotator cuff tear. IMPRESSION: 1. Full-thickness tear of the anterior one half of the supraspinatus is retracted approximately 1-2 cm. No associated muscle belly atrophy. 2. Long head of the biceps remains intact. 3. Mild degenerative articular cartilage loss in the glenoid. Dictated by: Dictated on workstation # [id number]
== END ==
LOC: RAD 12:30
PROVIDERS: ATTEND Family Medicine
DX: M75.112 Incomplete rotator cuff tear or rupture of left shoulder, not specified as traumatic (principal); M94.8X1 Other specified disorders of cartilage, shoulder
CPT/HCPCS: 73221

== ENCOUNTER → 2019-07-07 | Outpatient (REF) | END | disposition home or self-care (01) | LOC: OCC 12:17 → MERGE 12:17 | PROVIDERS: ATTEND Family Medicine ==

== ENCOUNTER 2020-09-17 05:35 | Outpatient (RCR) | payer MEDICARE, OTHER ==
[~2020-09-17] VITALS: Ht 177.8 cm; Wt 96.9 kg
[~2020-09-17 05:35] MED LIST changes: +ACHYD1T PO; +FOLI0.4T2 PO; -HYDR-3820 PO; +HYDR25TA4 PO; +LOSA100T57 PO; -OMEP20CA13 PO; +OMEP20CA18 PO; +PRAV20TA3 PO; +TADA10TA14 PO; +VALA500T7 PO
== END 2020-09-17 10:53 | disposition home or self-care (01) ==
LOC: PREOP 05:35
PROVIDERS: ATTEND Surgery
DX: Z01.818 Encounter for other preprocedural examination (principal); K64.4 Residual hemorrhoidal skin tags; Z20.828 Contact with and (suspected) exposure to other viral communicable diseases
CPT/HCPCS: 87635

== ENCOUNTER 2020-09-19 09:54 | Day surgery (SDC) | payer MEDICARE, OTHER ==
[~2020-09-19] VITALS: Ht 177.8 cm; Wt 96.9 kg
[2020-09-19] MEDS ORDERED: ceFAZolin 2 GM IV Premixed 50 ML IV ONE (10:15)
[2020-09-19] MEDS ORDERED: LACTATED RINGERS 1,000 ML IV PRN (10:15)
[2020-09-19 10:20] VITALS: BP 168/83
--- NOTE | 2020-09-19 11:31 | Progress Note-Pre Operative ---
Pre-Operative Progress Note H&P Reviewed The H&P was reviewed, patient examined and no changes noted. Date Seen by Provider: Sep 19, 2020 Time Seen by Provider: 11: Date H&P Reviewed: Sep 19, 2020 Time H&P Reviewed: 11:25 Pre-Operative Diagnosis: Symptomatic between stage II-III hemorrhoids KERRY MCKEON APRN Sep 19, 2020 11:30
[2020-09-19] MEDS ORDERED: HYDR-4227 PO (11:35)
--- NOTE | 2020-09-19 11:35 | Discharge Inst-Surgical ---
D/C Lap Instructions-KIDO Reconcile Patient Problems Problems Reviewed?: Yes New, Converted, or Re-Newed RX: RX on Chart Follow Up Appt in 2 weeks Activity as tolerated No driving for 24 hours No driving while on pain medications Incentive Spirometry use every 2 hours while awake Regular Diet Symptoms to Report: Fever over 101 degree F, Nausea/Vomiting Infection Signs and Symptoms to report: Increased redness, Foul odor of wound, Increased drainage Bathing instructions: May shower Operative Area Clean/Dry; Keep incision clean/dry If any problems/questions: Contact your physician or go to Emergency Room KERRY MCKEON APRN Sep 19, 2020 11:35
[2020-09-19] MEDS ORDERED: ONDANSETRON 4 MG/2 ML (SDV) Z0FRAN ONE (11:36)
[2020-09-19] MEDS ORDERED: LIDOCAINE PF 2% 5 ML (XYLOCAINE) VIAL ONE (11:36)
[2020-09-19] MEDS ORDERED: MIDAZOLAM 2 MG/2 ML (VERSED) VIAL ONE (11:36)
[2020-09-19] MEDS ORDERED: SEVOFLURANE (ULTANE) 15 ML INHAL SOLN ONE (11:36)
[2020-09-19] MEDS ORDERED: proPOfol 200 MG/20 ML (DIPRIVAN) VIAL IV ONE (11:36)
[2020-09-19] MEDS ORDERED: fentaNYL INJECTION 100 MCG/2 ML AMP ONE (11:36)
[2020-09-19] MEDS ORDERED: ACETAMINOPHEN 325 MG TABLET PO PRN (11:45)
[2020-09-19] MEDS ORDERED: morphine INJ 10 MG/ML 1ML (SYR OR VIAL) IVP PRN (11:45)
[2020-09-19] MEDS ORDERED: ONDANSETRON 4 MG/2 ML (SDV) Z0FRAN IVP PRN (11:45)
[2020-09-19] MEDS ORDERED: HYDROcodone/APAP 5 MG/325 MG (LORTAB) TAB PO PRN (11:45)
[2020-09-19] MEDS ORDERED: BUPIVACAINE 0.5% 30 ML (SENSORCAINE) VIAL ONE (11:57)
[2020-09-19] MEDS ORDERED: LIDOCAINE/EPI 1%-1:100,000 (XYLOCAINE) 20ML ONE (11:58)
--- NOTE | 2020-09-19 12:15 | NUR ---
PATIENT BECOMING INCREASINGLY AGITATED ABOUT NOT HAVING GONE TO SURGERY YET. CALLED THE OR TO SEE HOW LONG BEFORE HE WOULD GO TO SURGERY. PATIENT DECIDED TO LEAVE AND RESCHEDULE FOR AN EARLIER MORNING CASE. WILL CALL DR. ESQUIVEL'S OFFICE. DR. ESQUIVEL AWARE THAT THE PATIENT LEFT AT 1230 AFTER HIS IV WAS DISCONTINUED.
== END 2020-09-19 12:30 | disposition home or self-care (01) ==
LOC: SDC 09:54
PROVIDERS: ATTEND Surgery
DX: K64.1 Second degree hemorrhoids (principal); Z53.9 Procedure and treatment not carried out, unspecified reason
CPT/HCPCS: 87081

== ENCOUNTER 2020-10-01 05:33 | Outpatient (RCR) | payer OTHER ==
[~2020-10-01] VITALS: Ht 177.8 cm; Wt 95.5 kg
[~2020-10-01 05:33] MED LIST changes: +HYDR-4227 PO
== END 2020-10-01 10:52 | disposition home or self-care (01) ==
LOC: PREOP 05:33
PROVIDERS: ATTEND Surgery
DX: Z01.812 Encounter for preprocedural laboratory examination (principal); K64.8 Other hemorrhoids; Z20.828 Contact with and (suspected) exposure to other viral communicable diseases
CPT/HCPCS: 87635

== ENCOUNTER 2020-10-03 09:47 | Day surgery (SDC) | payer OTHER ==
--- NOTE | 2020-09-27 11:09 | HISTORY AND PHYSICAL ---
DATE OF SERVICE: DATE OF PROCEDURE: 10/03/2020. ATTENDING PRIMARY CARE PHYSICIAN: The [facility]. HISTORY OF PRESENT ILLNESS: This is a 75-year-old male who is known to us. He has a history gastroesophageal reflux disease, which he has had for many years; however, it worsened over time. He did report episodes of regurgitation. He also has a history of laryngeal cancer requiring radiation in the past as well as prostate cancer in 2009 and a melanoma in 2008. He did undergo an EGD with biopsy and balloon dilatation as well as a colonoscopy with biopsy in October 2018 by us. He was found to have reflux esophagitis stage II with a mild distal esophageal stricture and a Schatzki's ring as well as a small hiatal hernia that was approximately 1.5 cm in size. There was also a moderate gastritis at the antrum and pylorus. Colonoscopy revealed chronic stage II external and internal hemorrhoids as well as a mild proctitis at the distal rectum and a small hyperplastic polyp of the ascending colon that was 2 mm in size. It was biopsied and consistent with a tubular adenoma. Biopsies of the antrum and GE junction at that time were negative for any Spicer esophagus as well as negative for H. pylori. He was then seen in 06/2020 for complaints of episodes of bright red blood per rectum and reported that this was occurring for almost every bowel movement. He denied any pain as well as no itching or burning at that time. He reported that the blood was bright red in color. He also reported that he was having more formed stools; however, he was on pain medication. He did still having a daily bowel movement. At that time, we did proceed with conservative medical management with high fiber as well as a trial of Proctofoam HC medication. He then presented back approximately a month ago and reported that he continued to have the episodes of bleeding despite conservative medical management. He reports that he had tried several [id number] medications in the past and was not having any success with the high fiber. He reports that he did have hemorrhoidectomy several years ago when he was in the . He reported at that time, he would like to proceed with surgical intervention due to the symptomatic nature of his hemorrhoids. 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 PAST SURGICAL HISTORY: Appendectomy in 1958, open bilateral inguinal hernias in 2003, hemorrhoidectomy. ALLERGIES: No known drug allergies. MEDICATIONS: Losartan 100 mg daily, hydrochlorothiazide 25 mg daily, folic acid, hydrocodone 10/325 q.6 hours p.r.n., pravastatin 20 mg daily, Valacyclovir 500 mg daily, tadalafil 10 mg p.r.n. SOCIAL HISTORY: Positive for smoking tobacco for 50 pack years, negative for alcohol. FAMILY HISTORY: Maternal grandmother, myocardial infarction. VITAL SIGNS: Stable. Current weight is pounds at 5 feet 10 inches. REVIEW OF SYSTEMS: This is a well-nourished male in no acute distress. He is not experiencing any shortness of breath or difficulty breathing. No chest pain, palpitations or diaphoresis. No nausea, vomiting or abdominal pain. He denies any diarrhea or constipation, but does report episodes of more formed stools. He does report episodes of bright red blood in his stool, but denies any dark tarry stools. No fever or chills. No recent inadvertent weight loss. All other review of systems negative. PHYSICAL EXAMINATION: CHEST: Clear. Good breath sounds bilaterally. HEART: Regular, no murmurs. EXTREMITIES: No lower extremity edema. Negative Homans sign. HEENT: No scleral icterus. NECK: No cervical lymphadenopathy. ABDOMEN: Soft, nontender, nondistended. RECTAL: There is approximately stage II to III external and internal hemorrhoids are noted. There does not appear to be any thrombosed hemorrhoids as well as no fistulas or fissures noted. There is no active bleeding of the hemorrhoids upon examination. SKIN: Warm, dry and pink. NEUROLOGIC: Awake, alert and oriented x3. ASSESSMENT AND PLAN: A 75-year-old male with symptomatic between stage II-III internal and external hemorrhoids. At this time, he has tried conservative medical management without any success. He would at this time like to proceed with a formal hemorrhoidectomy. The risks and benefits of the procedure as well as the procedure and home care instructions were explained to the patient. The patient verbalized understanding of instructions and agrees to proceed as planned. At this time, we will proceed with a hemorrhoidectomy. Job ID: [id number] DocumentID: [id number] Dictated Date: 09/27/2020 08:59:12 Medical Records Coordinator Date: 09/27/2020 11:08:05 Dictated By: KERRY MCKEON APRN
[2020-10-03] VITALS (11 sets, daily range): BP systolic 108–150; BP diastolic 73–86
[~2020-10-03] VITALS: Ht 177.8 cm; Wt 95.5 kg
[2020-10-03] MEDS ORDERED: ceFAZolin 2 GM IV Premixed 50 ML IV ONE (10:00)
[2020-10-03] MEDS ORDERED: LACTATED RINGERS 1,000 ML IV PRN (10:00)
[2020-10-03] MEDS ORDERED: ceFAZolin 2 GM IV Premixed 50 ML ONE (10:05)
[2020-10-03] MEDS ORDERED: CATHETER FLUSH 10 ML SYR IV PRN (10:15)
--- NOTE | 2020-10-03 10:33 | Progress Note-Pre Operative ---
Pre-Operative Progress Note H&P Reviewed The H&P was reviewed, patient examined and no changes noted. Date Seen by Provider: Oct 03, 2020 Time Seen by Provider: 10:30 Date H&P Reviewed: Oct 03, 2020 Time H&P Reviewed: 10:30 Pre-Operative Diagnosis: sx stage 3 ext and int hemorroids. NYDIA ESQUIVEL MD Oct 03, 2020 10:33
--- NOTE | 2020-10-03 10:35 | Discharge Inst-Surgical ---
D/C Lap Instructions-IANO New, Converted, or Re-Newed RX: RX on Chart Follow Up Appt in 2 weeks Activity as tolerated No driving for 24 hours No driving while on pain medications sitz bath QID and after every bowel movement. Regular Diet, high fiber to promote soft stools daily. Symptoms to Report: Fever over 101 degree F, Nausea/Vomiting Infection Signs and Symptoms to report: Increased redness, Foul odor of wound, Increased drainage Bathing instructions: May shower Operative Area Clean/Dry; Keep incision clean/dry If any problems/questions: Contact your physician or go to Emergency Room NYDIA ESQUIVEL MD Oct 03, 2020 10:35
[2020-10-03] MEDS ORDERED: ONDANSETRON 4 MG/2 ML (SDV) Z0FRAN IVP PRN ×2 (10:45→13:30)
[2020-10-03] MEDS ORDERED: oxyCODONE/APAP 5/325MG (PERCOCET 5) TABLET PO PRN (10:45)
[2020-10-03] MEDS ORDERED: ACETAMINOPHEN 325 MG TABLET PO PRN (10:45)
[2020-10-03] MEDS ORDERED: morphine INJ 10 MG/ML 1ML (SYR OR VIAL) IVP PRN ×2 (10:45)
[2020-10-03] MEDS ORDERED: fentaNYL INJECTION 100 MCG/2 ML AMP ONE (10:50)
[2020-10-03] MEDS ORDERED: MIDAZOLAM 2 MG/2 ML (VERSED) VIAL ONE (10:50)
[2020-10-03] MEDS ORDERED: ONDANSETRON 4 MG/2 ML (SDV) Z0FRAN ONE (10:50)
[2020-10-03] MEDS ORDERED: LIDOCAINE PF 2% 5 ML (XYLOCAINE) VIAL ONE (10:50)
[2020-10-03] MEDS ORDERED: proPOfol 200 MG/20 ML (DIPRIVAN) VIAL IV ONE (10:50)
[2020-10-03] MEDS ORDERED: SEVOFLURANE (ULTANE) 15 ML INHAL SOLN ONE (10:50)
[2020-10-03] MEDS ORDERED: BUPIVACAINE 0.5% 30 ML (SENSORCAINE) VIAL ONE (11:16)
[2020-10-03] MEDS ORDERED: LIDOCAINE/EPI 1%-1:200,000 (XYLOCAINE) 30 ML VIAL ONE (11:16)
[2020-10-03] MEDS ORDERED: PHENYLEPHRINE 100 MCG/ML 10 ML (ANESTHESIA) SYR ONE (12:46)
--- NOTE | 2020-10-03 13:13 | Progress Note-Post Operative ---
Post-Operative Progess Note Surgeon (s)/Corporate Planning Manager (s) Surgeon NYDIA ESQUIVEL MD Corporate Planning Manager: marito smith CUTTER TENDER Pre-Operative Diagnosis sx stage 3 ext and int hemorroids. Post-Operative Diagnosis same Procedure & Operative Findings Date of Procedure 10/03/20 Procedure Performed/Findings alonso closed hemorrhoidectomy. Anesthesia Type general LMA Estimated Blood Loss Estimated blood loss (mL): minimal Specimens/Packing Specimens Removed hemorroidal cushion NYDIA ESQUIVEL MD Oct 03, 2020 13:13
[2020-10-03] MEDS ORDERED: morphine INJ 10 MG/ML 1ML (SYR OR VIAL) IVP ONE (13:30)
[2020-10-03] MEDS ORDERED: morphine INJ 10 MG/ML 1ML (SYR OR VIAL) ONE (13:47)
--- NOTE | 2020-10-03 19:09 | OPERATIVE REPORT ---
DATE OF SERVICE: 10/03/2020 ATTENDING PRIMARY ARCHITECTURAL EXAMINER: [facility]. PREOPERATIVE DIAGNOSIS: Symptomatic stage III external and internal hemorrhoidal cushion. POSTOPERATIVE DIAGNOSIS: Symptomatic stage III external and internal hemorrhoidal cushion. PROCEDURE PERFORMED: Lezama closed hemorrhoidectomy and pudendal nerve block. SURGEON: Nydia Esquivel MD. DISPENSING OPTICIAN APPRENTICE: Reinaldo Carlos APRN. ANESTHESIA: General laryngeal mask airway. ESTIMATED BLOOD LOSS: Minimal. FINDINGS: Enlarged stage III external and internal hemorrhoidal cushion at the 4 o'clock position with the patient supine. DISPOSITION: The patient tolerated the procedure well. INDICATIONS FOR PROCEDURE: The patient is a 75-year-old male known to us. We had seen him before in the past for gastroesophageal reflux disease and underwent an EGD as well as a balloon dilatation. He has a history of laryngeal cancer requiring radiation in the past. He was seen in 06/2020 for episode of red blood per rectum after every bowel movement. We had proceeded with medical management with the incorporation of high fiber diet as well as Proctofoam; however, he continued to have bleeding. He did have a hemorrhoidectomy many years ago in the past and upon examination, he was found to have a stage III external and internal hemorrhoidal cushion. DESCRIPTION OF PROCEDURE: The patient was brought to the operating room and laid supine on the table. After adequate IV pain and sedative medications and general laryngeal mask airway intubation, the patient was placed in lithotomy position and the perineum was prepped and draped in a standard surgical fashion. A 0.5% Marcaine with epinephrine was then used to proceed with a pudendal nerve block at the 3 and 9 o'clock position just inferior to the pubic rami with loosening of the anal sphincters. A self-retaining speculum was then placed and the external and internal hemorrhoidal cushion at approximately the 4 o'clock position identified. This was then anesthetized with 0.5% Marcaine with epinephrine. We then proceeded with a formal Lezama closed hemorrhoidectomy by excision of the external and internal hemorrhoidal cushion en bloc using the Sonicision with visualization of good hemostasis. The rectal mucosa and then the anoderm were then reapproximated using 0 Vicryl running suture. Good hemostasis was observed. A Surgicel covered in a Gelfoam was then created and placed into the anal canal for hemostasis. This was then covered with a gauze followed by ABD pad. The patient tolerated the procedure well. He will be instructed to continue with strict compliance to medical management with a high fiber diet as well as two stool softeners to promote extremely soft stools on a daily basis. He will also need to do Sitz baths four times a day as well as after every bowel movement. Job ID: [id number] DocumentID: [id number] Dictated Date: 10/03/2020 13:20:08 Magnetic Doctor Date: 10/03/2020 19:08:29 Dictated By: NYDIA ESQUIVEL MD
== END 2020-10-03 14:55 | disposition home or self-care (01) ==
LOC: SDC 09:47
PROVIDERS: ATTEND Surgery
DX: K64.2 Third degree hemorrhoids (principal); K21.9 Gastro-esophageal reflux disease without esophagitis; I10 Essential (primary) hypertension; M19.90 Unspecified osteoarthritis, unspecified site; E78.00 Pure hypercholesterolemia, unspecified; F17.210 Nicotine dependence, cigarettes, uncomplicated; Z79.899 Other long term (current) drug therapy; Z85.21 Personal history of malignant neoplasm of larynx; Z85.46 Personal history of malignant neoplasm of prostate; Z85.820 Personal history of malignant melanoma of skin; Z92.3 Personal history of irradiation
CPT/HCPCS: 87081; 88304

== ENCOUNTER 2021-09-18 14:16 | Outpatient (RCR) | payer OTHER ==
[~2021-09-18 14:16] MED LIST changes: -FOLI0.4T2 PO; +FOLI0.4T6 PO
== END 2021-10-13 15:01 | disposition home or self-care (01) ==
PROVIDERS: ATTEND Orthopaedic Surgery
DX: M25.512 Pain in left shoulder (principal)

== ENCOUNTER 2021-11-11 05:35 | Outpatient (CLI) | payer MEDICARE, OTHER ==
[2021-11-14] MEDS ORDERED: LOSA50TA63 PO (12:04)
== END 2021-11-14 16:52 | disposition home or self-care (01) ==
LOC: PREOP 05:35
PROVIDERS: ATTEND Specialist
DX: Z01.818 Encounter for other preprocedural examination (principal)

== ENCOUNTER 2021-11-17 08:53 | Day surgery (SDC) | payer MEDICARE, OTHER ==
[~2021-11-17] VITALS: Ht 177.8 cm; Wt 90.8 kg
[~2021-11-17 08:53] MED LIST changes: +LOSA50TA63 PO
[2021-11-17] MEDS ORDERED: TROPICAMIDE 1% OPH SOLN (MYDRIACYL) 15 ML BTL OU PRN (09:15)
[2021-11-17] MEDS ORDERED: PHENYLEPHRINE 10% OPHTH (NEO-SYN) 5 ML BTL OU PRN (09:15)
[2021-11-17] MEDS: TETRACAINE 0.5% OPHTH SOLN 4 ML BTL (SINGLE DOSE ONLY) OU PRN ×2 (09:17→09:20)
[2021-11-17 09:18] VITALS: BP 145/96
--- NOTE | 2021-11-17 10:01 | Ophthalmologist Pre-Op Note ---
Pre-Operative Progress Note H&P Reviewed The H&P was reviewed, patient examined and no changes noted. Date H&P Reviewed: Nov 17, 2021 Time H&P Reviewed: 09:33 Pre-Op Dx Secondary Cataract, Right Eye KIMBERLEY HAND MD Nov 17, 2021 10:01
--- NOTE | 2021-11-17 10:02 | Ophthalmology Operative Report ---
YAG Capsulotomy PREOPERATIVE DIAGNOSIS: Secondary Cataract Left Eye POSTOPERATIVE DIAGNOSIS: Secondary Cataract Left Eye PROCEDURE: YAG Capsulotomy, left eye SURGEON: Richardson Hand ANESTHESIA: Topical anesthesia COMPLICATIONS: None ESTIMATED BLOOD LOSS: Minimal DESCRIPTION OF PROCEDURE: After proper informed consent was obtained, the patient's, a 76 male left eye received one drop of Tropicamide and one drop of Tetracaine. The patient was then placed at the YAG laser and using a power of [ 4.5] millijoules and [ 23] bursts were used to fashion a central capsulotomy. The patient tolerated the procedure well without complications. RICHARDSON HAND MD Nov 17, 2021 10:02
[2021-11-17 10:03] VITALS: BP 145/96
== END 2021-11-17 09:45 ==
LOC: SDC 08:53
PROVIDERS: ATTEND Specialist
DX: H26.492 Other secondary cataract, left eye (principal); F17.200 Nicotine dependence, unspecified, uncomplicated; Z79.899 Other long term (current) drug therapy; Z79.891 Long term (current) use of opiate analgesic

== ENCOUNTER 2022-08-01 21:54 | Emergency (ER) | payer MEDICARE ==
[~2022-08-01] VITALS: Ht 168 cm; Wt 78.0 kg
--- NOTE | 2022-08-01 22:09 | ED Hip Pain/Injury ---
General Chief Complaint: Hip/Pelvic Problems Stated Complaint: L SIDE HIP PAIN Source: patient (TALKS LOUDLY NON-STOP, IS CONTINUOUSLY ON HIS PHONE--TEXTING/ETC--FROM ARRIVAL AND CONTINUES THROUGHOUT ENTIRE HISTORY AND EXAM AND REFUSES TO PUT PHONE DOWN OR STOP WHAT HE IS DOING ON THE PHONE IN ORDER FOR HISTORY AND EXAM TO BE DONE. PT REFUSES TO WEAR A MASK. 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 AND IT SLIPPED AND HE WENT DOWN TO HIS KNEES AND TWISTED HIS LEFT HIP NO INJURY KNEES NO DIRECT IMPACT TO HIP ONLY C/O PAIN TO LEFT HIP NO PARESTHESIAS OR MOTOR DEFICITS NO PRIOR INJURIES OR PROBLEMS WITH THIS HIP HAS CHRONIC BACK PAIN AND TAKES HYDROCODONE DAILY Other PCP: GOES TO [facility] Allergies and Home Medications Allergies Coded Allergies: No Known Drug Allergies (Unverified , 07/28/18) Patient Home Medication List Home Medication List Reviewed: Yes Cyclobenzaprine HCl (Cyclobenzaprine HCl) 10 Mg Tablet, 10 MG PO Q8H PRN for SPASMS Prescribed by: BRYSON PATEL on 08/01/222302 Folic Acid (Folic Acid) 0.4 Mg Tablet, 0.4 MG PO DAILY, (Reported) Entered as Reported by: SNOW CALERO on 09/13/20 1106 Hydrocodone Bit/Acetaminophen (HYDROcodone/APAP 10/325 TABLET) 1 Each Tablet, 1 EACH PO Q6H PRN for PAIN-MODERATE, (Reported) Entered as Reported by: TALIB CURRY on 07/28/18 1125 Losartan Potassium (Losartan Potassium) 50 Mg Tablet, 50 MG PO DAILY, (Reported) Entered as Reported by: STEPHANIE CORDOVA on 11/14/21 1204 Naproxen (Naproxen) 500 Mg Tablet.dr, 500 MG PO BID Prescribed by: BRYSON PATEL on 08/01/222302 Review of Systems Constitutional: no symptoms reported Respiratory: no symptoms reported Cardiovascular: no symptoms reported Gastrointestinal: no symptoms reported Genitourinary: no symptoms reported Musculoskeletal: see HPI Skin: no symptoms reported Psychiatric/Neurological: No Symptoms Reported Past Uplimlh-Ezczoc-Tajepx Hx Seasonal Allergies Seasonal Allergies: Yes Past Medical History Surgeries: Yes (bilat ing hernia, hemorrhoidectomy, R arm sx) Appendectomy, Orthopedic, Renal Respiratory: No Currently Using CPAP: No Currently Using BIPAP: No Cardiac: Yes High Cholesterol, Hypertension Neurological: No Reproductive Disorders: No Sexually Transmitted Disease: No Genitourinary: No Gastrointestinal: Yes Gastroesophageal Reflux, Chronic Constipation, Hemorrhoids Musculoskeletal: Yes Degenerate Disk Disease, Chronic Back Pain Endocrine: No HEENT: No (cataracts removed) Cancer: Yes (Throat) Prostate What Type of Treatment Did You: Radiation Psychosocial: No Integumentary: No Blood Disorders: No Family Medical History Heart Disease Physical Exam Vital Signs Vital Signs - First Documented 08/01/22 22:00 Temp 36.8 Pulse 104 Resp 18 B/P (MAP) 138/82 (100) Pulse Ox 94 O2 Delivery Room Air Capillary Refill : Height, Weight, BMI Height: 5'10.00" Weight: 201lbs. 0.0oz. [id number]; 30.20 BMI Method:Stated General Appearance: No Apparent Distress, WD/WN, Other ( ABOVE. WALKS INTO ER ON HIS OWN WITHOUT DIFFICULTY) Neck: Full Range of Motion, Normal Inspection, Non Tender, Supple Cardiovascular: Regular Rate, Rhythm, No Murmur Respiratory: Chest Non Tender, Normal Breath Sounds, No Accessory Muscle Use, No Respiratory Distress Gastrointestinal: Non Tender, Soft Back: No CVA Tenderness, No Vertebral Tenderness Extremity: Normal Capillary Refill, Normal Range of Motion, No Calf Tenderness, Pedal Edema (TRACE BILATERALLY), Pelvis Stable, Other (MILD GENERALIZED LEFT HIP AREA TENDERNESS) Neurologic/Psychiatric: Alert, Oriented x3, No Motor/Sensory Deficits, Normal 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, 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 Norm as Tested Skin: Normal Color, Warm/Dry; No Ecchymosis, No Rash Progress/Results/Core Measures Results/Orders My Orders Orders - AMANDAKEYAA K DO Femur, Left, 2 Views (08/01/22 22:03) Pelvis With Left Hip 2-3 Views (08/01/22 22:03) Vital Signs/I&O 08/01/22 22:00 Temp 36.8 Pulse 104 Resp 18 B/P (MAP) 138/82 (100) Pulse Ox 94 O2 Delivery Room Air Diagnostic Imaging Comments XRAYS--ALL PENDING RADIOLOGIST REVIEW PELVIS WITH LEFT HIP--NO ACUTE PROCESS LEFT FEMUR--NO ACUTE PROCESS Reviewed: Reviewed by Me Departure Impression Primary Impression: Strain of left hip and thigh Disposition: HOME, SELF-CARE Condition: Stable Departure-Patient Inst. Decision time for Depature: 22:58 Referrals: NO,LOCAL PHYSICIAN (PCP) Primary Care Physician Patient Instructions: Leg Muscle Strain ED Add. Discharge Instructions: ALTERNATE ICE AND HEAT TO AREA AT 20 MINUTE INTERVALS HOME, REST FOLLOW UP WITH OCCUPATIONAL HEALTH ON WEDNESDAY FOR FURTHER CARE NO WORK UNTIL CLEARED BY OCCUPATIONAL HE[facility] All discharge instructions reviewed with patient and/or family. Voiced understanding. Scripts Naproxen (Naproxen) 500 Mg Tablet. 500 MG PO BID, #20 TAB Prov: BRYSON PATEL DO 08/01/22 Cyclobenzaprine HCl (Cyclobenzaprine HCl) 10 Mg Tablet 10 MG PO Q8H PRN for SPASMS, #15 TAB 0 Refills Prov: BRYSON PATEL DO 08/01/22 BRYSON PATEL DO Aug 01, 2022 22:09
[2022-08-01] MEDS ORDERED: CYCL10TA25 PO (23:03)
[2022-08-01] MEDS ORDERED: NAPR500T8 PO (23:03)
[2022-08-01] MEDS ORDERED: RX-NAPROXEN (NAPROSYN) 250 MG TAB PPK#4 PO STA (23:15)
[2022-08-01] MEDS ORDERED: RX-CYCLOBENZAPRINE 10 MG (FLEXERIL) TAB PPK#3 PO STA (23:15)
[2022-08-01] MEDS ORDERED: NAPROXEN 250 MG (NAPROSYN) TABLET PO ONE ×2 (23:22→23:30)
[2022-08-02 01:05] VITALS: BP 113/80
--- NOTE | 2022-08-02 07:37 | Diagnostic Imaging Report ---
INDICATION: Pain FINDINGS: AP pelvis and two-view left hip showed no fracture, dislocation or acute appearing articular irregularity. IMPRESSION: No acute appearing abnormality. Dictated by: Dictated on workstation # [id number]
--- NOTE | 2022-08-02 07:42 | Diagnostic Imaging Report ---
INDICATION: Pain. FINDINGS: Two views of the left femur show no fracture, dislocation, or acute appearing articular irregularity. IMPRESSION: No acute appearing abnormality. Dictated by: Dictated on workstation # [id number]
== END 2022-08-01 23:24 | disposition home or self-care (01) ==
LOC: EDUNIT# 21:54 → ER 21:58
DX: S76.012A Strain of muscle, fascia and tendon of left hip, initial encounter (principal); S76.912A Strain of unspecified muscles, fascia and tendons at thigh level, left thigh, initial encounter; X50.1XXA Overexertion from prolonged static or awkward postures, initial encounter; Y93.F2 Activity, caregiving, lifting; Y92.59 Other trade areas as the place of occurrence of the external cause; Y99.0 Civilian activity done for income or pay
CPT/HCPCS: 73552

== ENCOUNTER → 2022-09-14 | Outpatient (CLI) | payer OTHER, MEDICARE ==
[~2022-09-14] MED LIST changes: +CYCL10TA25 PO; +NAPR500T8 PO
--- NOTE | 2022-09-14 20:02 | Diagnostic Imaging Report ---
PROCEDURE: MRI pelvis without contrast. TECHNIQUE: Multiplanar, multisequence MRI of the pelvis was performed without contrast. INDICATION: Lower abdominal and hip pain. COMPARISON: Radiographs of the left hip from 08/01/2022. FINDINGS: Bones: No avascular necrosis in the femoral heads. There are a few scattered symmetric areas of T2 hyperintense signal within the intertrochanteric region of proximal femurs in the supra-acetabular region. There are no associated macroscopic fractures at these sites. 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 Muscles and tendons: The bilateral distal iliopsoas tendons are intact. Proximal hamstring complexes are normal. Adductor musculature is intact. No acute tear in the gluteus medius or minimus on either side. Rectus abdominis insertion on the symphysis pubis is normal. Other: No free pelvic fluid. No pelvic or inguinal lymphadenopathy. Prostate is not enlarged. IMPRESSION: 1. There are a few symmetric areas of T2 hyperintense medullary signal within the proximal femurs and acetabulum on both sides. These could represent sites of early stress reaction, although the symmetry suggests these more likely to be areas of red marrow reconversion. If patient's symptoms do not improve, follow-up MRI of the pelvis without contrast in 6-8 weeks could be obtained to determine if these areas change. 2. Outside of these areas, no osseous or soft tissue abnormality to account for patient's symptoms. Dictated by: Dictated on workstation # [id number]
== END ==
LOC: RAD 14:45
PROVIDERS: ATTEND Family Medicine
DX: R10.30 Lower abdominal pain, unspecified (principal); M25.559 Pain in unspecified hip
CPT/HCPCS: 72195

== ENCOUNTER → 2023-08-17 | Outpatient (RCR) | payer OTHER ==
[~2023-08-17] MED LIST changes: -LOSA100T57 PO; +LOSA100T58 PO
== END | disposition home or self-care (01) ==
LOC: ONC 07-26 08:16
PROVIDERS: ATTEND Radiology Radiation Oncology
DX: N41.9 Inflammatory disease of prostate, unspecified (principal); I10 Essential (primary) hypertension; I65.29 Occlusion and stenosis of unspecified carotid artery; I25.10 Atherosclerotic heart disease of native coronary artery without angina pectoris; E78.2 Mixed hyperlipidemia; Z72.0 Tobacco use
CPT/HCPCS: 77290; 77295; 77300; 77332; 77334; 77336; 77470; 99205

== ENCOUNTER 2023-09-14 10:50 | Outpatient (RCR) | payer OTHER | END 2023-09-16 | disposition home or self-care (01) | LOC: ONC 10:50 | PROVIDERS: ATTEND Radiology Radiation Oncology | DX: Z51.0 Encounter for antineoplastic radiation therapy (principal); I10 Essential (primary) hypertension; I65.29 Occlusion and stenosis of unspecified carotid artery; I25.10 Atherosclerotic heart disease of native coronary artery without angina pectoris; E78.2 Mixed hyperlipidemia; E66.9 Obesity, unspecified; Z72.0 Tobacco use; Z68.29 Body mass index [BMI] 29.0-29.9, adult | CPT/HCPCS: 77336; 99213 ==